=== PATIENT | female | born 1965 | race Two or more races ===

== ENCOUNTER 2020-01-27 16:33 | Emergency (ER) | payer SELFPAY ==
[~2020-01-27] VITALS: Ht 170.2 cm; Wt 111.1 kg
[2020-01-27 16:47] VITALS: BP 134/70
[2020-01-27 19:52] LABS: Basophils # (auto) 0 uL; Basophils % (auto) 0.2 % (0.0-2.0); Eosinophils # (auto) 0.1 uL; Hemoglobin 10.3 g/dL (12.2-16.2); Lymphocytes # (auto) 1.2 uL; Monocytes # (auto) 0.5 uL; Neutrophils % (auto) 76.8 % (37.0-80.0)
[2020-01-27 19:54] LABS: Eosinophils % (auto) 1.2 % (0.0-7.0); Hematocrit 33.1 % (36.0-46.0); Lymphocytes % (auto) 15.3 % (10.0-50.0); Mean Corpuscular Hemoglobin 24.9 pg (28.0-32.0); Mean Corpuscular Hgb Conc. 31.2 g/dL (32.0-36.0); Mean Corpuscular Volume 79.6 fL (80.0-100.0); Monocytes % (auto) 6.5 % (0.0-12.0); Neutrophils # (auto) 5.9 uL; Nucleated Red Blood Cells % 0.1 %; Platelet Count (auto) 256 10^3/uL (140-450); Red Blood Cells 4.15 10^6/uL (4.0-5.20); Red Cell Distribution Width 17.7 % (11.8-14.3); White Blood Cell 7.6 10^3/uL (4.4-10.8)
[2020-01-27 20:08] LABS: Albumin 3.7 g/dL (3.4-5.0); BUN/Creatinine Ratio 17.7; Calcium 8.6 mg/dL (8.5-10.1); Potassium 4.6 mmol/L (3.5-5.1)
[2020-01-27 20:11] LABS: Bilirubin, Total 0.4 mg/dL (0.2-1.0); Total Protein 8.8 g/dL (6.4-8.2)
[2020-01-27] MEDS ORDERED: SODIUM CHLORIDE 0.9% 1,000 ML IV ONE (21:00)
[2020-01-27] MEDS ORDERED: diphenhdrAMINE HCL 50 MG/1 ML VL IV ONE (21:00)
[2020-01-27] MEDS ORDERED: InsuLIN REG 1unit/0.01ml Soln (100units/ml) IV ONE (21:00)
== END 2020-01-27 20:57 | disposition left against medical advice (07) ==
LOC: ER 16:33
DX: E11.65 Type 2 diabetes mellitus with hyperglycemia (principal); R11.2 Nausea with vomiting, unspecified; R10.9 Unspecified abdominal pain
CPT/HCPCS: 36415; 80053; 85025

== ENCOUNTER 2021-04-28 19:15 | Inpatient (IN) | payer MEDICAID, OTHER ==
[~2021-04-28] VITALS: Ht 170.2 cm; Wt 96.3 kg
[2021-04-28 21:08] LABS: Basophils # (auto) 0 10 ^3/uL (0-0.2); Eosinophils # (auto) 0 10 ^3/uL (0-0.8); Hemoglobin 8.2 g/dL (12.2-16.2); Lymphocytes % (auto) 9.8 % (10.0-50.0); Monocytes # (auto) 0.9 10 ^3/uL (0-1.3); Neutrophils # (auto) 7.9 10 ^3/uL (1.6-8.6)
[2021-04-28 21:09] LABS: Basophils % (auto) 0.4 % (0.0-2.0); Eosinophils % (auto) 0.3 % (0.0-7.0); Hematocrit 26.9 % (36.0-46.0); Mean Corpuscular Hemoglobin 24.4 pg (28.0-32.0); Mean Corpuscular Hgb Conc. 30.3 g/dL (32.0-36.0); Mean Corpuscular Volume 80.2 fL (80.0-100.0); Monocytes % (auto) 9.5 % (0.0-12.0); Red Blood Cells 3.36 10^6/uL (4.0-5.20); Red Cell Distribution Width 19.2 % (11.8-14.3); White Blood Cell 9.8 10^3/uL (4.4-10.8)
[2021-04-28 21:16] LABS: INR 1.04 (0.9-1.15); Partial Thromboplastin Time 22.9 sec (23.0-31.2)
[2021-04-28 21:21] LABS: Calcium 8.3 mg/dL (8.5-10.1); Potassium 4.7 mmol/L (3.5-5.1)
[2021-04-28 21:24] LABS: Albumin 3.4 g/dL (3.4-5.0); BUN/Creatinine Ratio 13.5; Magnesium 2.1 mg/dL (1.6-2.6)
[2021-04-28 21:30] LABS: Bilirubin, Total 0.5 mg/dL (0.2-1.0); Total Protein 7.5 g/dL (6.4-8.2)
[2021-04-28] MEDS ORDERED: cefTRIAXone 1GM/50ML D5W 50 ML IV ONE (22:30)
[2021-04-28] MEDS ORDERED: ASPirin 325 MG TAB PO ONE (22:30)
[2021-04-28] MEDS ORDERED: AZITHROMYCIN 500MG/ 250ML 250 ML IV ONE (22:30)
[2021-04-29] MEDS: ENOXAPARIN SOD 120 MG/0.8 ML SYRINGE SC ONE ×2 (01:18→05:54)
[2021-04-29 01:36] LABS: Urine Bacteria MOD /hpf (None Seen); Urine Blood 2+ /uL (Negative); Urine Specific Gravity 1.018 (1.001-1.035); Urine WBC 256 /hpf (0 - 5)
[2021-04-29] MEDS ORDERED: ONDANSETRON HCL 4 MG/2 ML VIAL IV PRN (05:00)
[2021-04-29] MEDS ORDERED: DEXTROSE (50%) 50ML SYRG IV ONE (05:00)
[2021-04-29] MEDS: HEPARIN SODIUM (PORCINE) 5000 UNITS/ML 1ML VIAL SC SCH ×3 (06:56→22:37)
[2021-04-29] MEDS: SODIUM CHLORIDE 0.9% 1,000 ML IV SCH ×3 (06:56→22:32)
[2021-04-29] MEDS ORDERED: InsuLIN REG 1unit/0.01ml Soln (100units/ml) SC ONE (07:00)
[2021-04-29] MEDS ORDERED: ACCU-CHEK COMFORT CURVE STRIP VI ONE (07:00)
[2021-04-29 08:30] LABS: Basophils # (auto) 0 10 ^3/uL (0-0.2); Basophils % (auto) 0.1 % (0.0-2.0); Eosinophils # (auto) 0.1 10 ^3/uL (0-0.8); Eosinophils % (auto) 0.9 % (0.0-7.0); Lymphocytes # (auto) 0.9 10 ^3/uL (0.4-5.4); Mean Corpuscular Hemoglobin 24.9 pg (28.0-32.0); Mean Corpuscular Hgb Conc. 31.3 g/dL (32.0-36.0)
[2021-04-29 08:31] LABS: Hematocrit 25.6 % (36.0-46.0); Lymphocytes % (auto) 10.8 % (10.0-50.0); Mean Corpuscular Volume 79.4 fL (80.0-100.0); Monocytes # (auto) 0.9 10 ^3/uL (0-1.3); Monocytes % (auto) 10.7 % (0.0-12.0); Neutrophils # (auto) 6.5 10 ^3/uL (1.6-8.6); Neutrophils % (auto) 77.5 % (37.0-80.0); Nucleated Red Blood Cells % 0.1 %; Red Blood Cells 3.23 10^6/uL (4.0-5.20); Red Cell Distribution Width 19.3 % (11.8-14.3); White Blood Cell 8.4 10^3/uL (4.4-10.8)
[2021-04-29 09:59] LABS: Calcium 8.4 mg/dL (8.5-10.1); Potassium 4.5 mmol/L (3.5-5.1)
[2021-04-29 10:14] LABS: BUN/Creatinine Ratio 19.4; Bilirubin, Total 0.3 mg/dL (0.2-1.0); Total Protein 7.1 g/dL (6.4-8.2)
[2021-04-29] MEDS ORDERED: GABA-339 PO (12:21)
[2021-04-29] MEDS ORDERED: LISI-275 PO (12:21)
[2021-04-29] MEDS ORDERED: CITA-73 PO (12:21)
[2021-04-29] MEDS ORDERED: METF-370 PO (12:21)
[2021-04-29 13:00] VITALS: BP 140/74
[2021-04-29] MEDS ORDERED: ALBUTEROL SULF 2.5 MG/0.5ML(0.5%) NEB SOLN NEB PRN (13:15)
[2021-04-29 16:01] VITALS: BP 122/62
[2021-04-29 17:00] VITALS: BP 137/78
[2021-04-29 22:00] VITALS: BP 159/83
[2021-04-29] MEDS: cefTRIAXone 1GM/50ML D5W 50 ML IV SCH (22:32)
[2021-04-29] MEDS: AZITHROMYCIN 500MG/ 250ML 250 ML IV SCH (23:25)
[2021-04-29] MEDS: HYDROcodone-ACET 5/325MG TAB PO PRN (23:26)
[2021-04-30 05:00] VITALS: BP 150/72
[2021-04-30] MEDS: SODIUM CHLORIDE 0.9% 1,000 ML IV SCH ×3 (05:33→21:10)
[2021-04-30] MEDS: HYDROcodone-ACET 5/325MG TAB PO PRN ×3 (05:34→21:10)
[2021-04-30] MEDS: HEPARIN SODIUM (PORCINE) 5000 UNITS/ML 1ML VIAL SC SCH ×3 (05:39→22:14)
[2021-04-30 07:02] LABS: Basophils # (auto) 0 10 ^3/uL (0-0.2); Basophils % (auto) 0.1 % (0.0-2.0); Eosinophils # (auto) 0.1 10 ^3/uL (0-0.8); Hemoglobin 7.1 g/dL (12.2-16.2); Lymphocytes # (auto) 0.8 10 ^3/uL (0.4-5.4); Monocytes # (auto) 0.6 10 ^3/uL (0-1.3)
[2021-04-30 07:05] LABS: Eosinophils % (auto) 1.4 % (0.0-7.0); Hematocrit 22.1 % (36.0-46.0); Lymphocytes % (auto) 11.8 % (10.0-50.0); Mean Corpuscular Hgb Conc. 32.1 g/dL (32.0-36.0); Monocytes % (auto) 9.3 % (0.0-12.0); Neutrophils # (auto) 5.4 10 ^3/uL (1.6-8.6); Neutrophils % (auto) 77.4 % (37.0-80.0); Red Blood Cells 2.84 10^6/uL (4.0-5.20); Red Cell Distribution Width 19.4 % (11.8-14.3); White Blood Cell 6.9 10^3/uL (4.4-10.8)
[2021-04-30 07:22] LABS: BUN/Creatinine Ratio 30.9; Calcium 8.3 mg/dL (8.5-10.1); Potassium 4.3 mmol/L (3.5-5.1)
[2021-04-30 08:55] VITALS: BP 151/68
[2021-04-30 13:00] VITALS: BP 159/89
[2021-04-30 16:59] VITALS: BP 132/67
[2021-04-30 21:35] VITALS: BP 153/108
[2021-04-30] MEDS: cefTRIAXone 1GM/50ML D5W 50 ML IV SCH (22:20)
[2021-04-30] MEDS: AZITHROMYCIN 500MG/ 250ML 250 ML IV SCH (22:53)
[2021-05-01] VITALS (10 sets, daily range): BP systolic 127–173; BP diastolic 63–81
[2021-05-01] MEDS: HYDROcodone-ACET 5/325MG TAB PO PRN ×3 (03:41→16:06)
[2021-05-01] MEDS: SODIUM CHLORIDE 0.9% 1,000 ML IV SCH (04:54)
[2021-05-01] MEDS ORDERED: HEPARIN SODIUM (PORCINE) 5000 UNITS/ML 1ML VIAL ONE (05:39)
[2021-05-01] MEDS: HEPARIN SODIUM (PORCINE) 5000 UNITS/ML 1ML VIAL SC SCH ×2 (05:44→15:00)
[2021-05-01 05:59] LABS: Potassium 3.8 mmol/L (3.5-5.1)
[2021-05-01 06:08] LABS: BUN/Creatinine Ratio 19.8; Calcium 8.2 mg/dL (8.5-10.1)
[2021-05-01] MEDS ORDERED: SODIUM CHLORIDE 0.9% 1,000 ML IV SCH (09:45)
[2021-05-01] MEDS ORDERED: LEVO500T31 PO (09:54)
[2021-05-01] MEDS ORDERED: FERR-20 PO (09:54)
[2021-05-01] MEDS ORDERED: ACET1CAP14 PO (09:55)
[2021-05-01 10:05] LABS: Basophils # (auto) 0 10 ^3/uL (0-0.2); Eosinophils # (auto) 0.1 10 ^3/uL (0-0.8); Lymphocytes # (auto) 1.1 10 ^3/uL (0.4-5.4); Nucleated Red Blood Cells % 0.1 %
[2021-05-01 10:08] LABS: Basophils % (auto) 0.3 % (0.0-2.0); Eosinophils % (auto) 1.6 % (0.0-7.0); Hematocrit 21.8 % (36.0-46.0); Lymphocytes % (auto) 16.7 % (10.0-50.0); Mean Corpuscular Hemoglobin 25.4 pg (28.0-32.0); Mean Corpuscular Hgb Conc. 32.1 g/dL (32.0-36.0); Mean Corpuscular Volume 79.2 fL (80.0-100.0); Monocytes # (auto) 0.7 10 ^3/uL (0-1.3); Monocytes % (auto) 10.4 % (0.0-12.0); Neutrophils # (auto) 4.7 10 ^3/uL (1.6-8.6); Red Blood Cells 2.75 10^6/uL (4.0-5.20); Red Cell Distribution Width 19.4 % (11.8-14.3); White Blood Cell 6.6 10^3/uL (4.4-10.8)
[2021-05-01] MEDS ORDERED: SODIUM BICARBONATE 50ML VIAL 50 ML in SOD CHL 0.45% 1,000 ML IV SCH (10:15)
[2021-05-01 10:39] LABS: % Iron Saturation 5.2 % (15-50)
[2021-05-01] MEDS ORDERED: FUROSEMIDE 40 MG/4 ML VIAL IV ONE (17:00)
[2021-05-01] MEDS ORDERED: amLODIPine BESYLATE 5 MG TAB PO ONE (17:00)
== END 2021-05-01 18:56 | disposition home health service (06) | DRG 720 ==
LOC: ER 19:15 → EDBD 19:15 → TELE 04-29 05:28 → TELE-CENTR 04-29 11:40
PROVIDERS: ADMIT Hospitalist; ATTEND Hospitalist
PROC: 30233N1 Transfusion of Nonautologous Red Blood Cells into Peripheral Vein, Percutaneous Approach (ICD-10-PCS; principal; 2021-05-01)
DX: A41.9 Sepsis, unspecified organism (principal); J96.01 Acute respiratory failure with hypoxia; I21.A1 Myocardial infarction type 2; N17.0 Acute kidney failure with tubular necrosis; I13.0 Hypertensive heart and chronic kidney disease with heart failure and stage 1 through stage 4 chronic kidney disease, or unspecified chronic kidney disease; J18.9 Pneumonia, unspecified organism; I50.9 Heart failure, unspecified; E11.22 Type 2 diabetes mellitus with diabetic chronic kidney disease; N18.32 Chronic kidney disease, stage 3b; E87.2 Acidosis; I42.9 Cardiomyopathy, unspecified; M62.82 Rhabdomyolysis; N39.0 Urinary tract infection, site not specified; R80.9 Proteinuria, unspecified; F32.9 Major depressive disorder, single episode, unspecified; Z79.4 Long term (current) use of insulin; Z98.84 Bariatric surgery status; Z20.822 Contact with and (suspected) exposure to COVID-19; I25.10 Atherosclerotic heart disease of native coronary artery without angina pectoris; D50.9 Iron deficiency anemia, unspecified
CPT/HCPCS: 36415; 36600; 70450; 70551; 71045; 73700; 74176; 80048; 80053; 81001; 82550; 82805; 82962; 83036; 83540; 83550; 83605; 83735; 83880; 84443; 84484; 85025; 85379; 85610; 85730; 86850; 86900; 86901; 86920; 87040; 87086; 87088; 87186; 87426; 93005; 93306; 93970; 96365; 96366; 96367; 97163; G0378; J0696

== ENCOUNTER 2021-05-14 18:32 | Inpatient (IN) | payer MEDICAID ==
[~2021-05-14] VITALS: Ht 170.2 cm; Wt 92.0 kg
[~2021-05-14 18:32] MED LIST: ACET1CAP14 PO; CITA-73 PO; FERR-20 PO; LEVO500T31 PO
[2021-05-14] MEDS ORDERED: SODIUM CHLORIDE 0.9% 500 ML IV ONE (19:15)
[2021-05-14 20:01] LABS: Basophils # (auto) 0 10 ^3/uL (0-0.2); Basophils % (auto) 0.1 % (0.0-2.0); Eosinophils # (auto) 0 10 ^3/uL (0-0.8); Eosinophils % (auto) 0.5 % (0.0-7.0); Hematocrit 29.5 % (36.0-46.0); Hemoglobin 9.4 g/dL (12.2-16.2); Lymphocytes # (auto) 0.8 10 ^3/uL (0.4-5.4); Lymphocytes % (auto) 11.9 % (10.0-50.0); Mean Corpuscular Hemoglobin 27.3 pg (28.0-32.0); Mean Corpuscular Volume 85.4 fL (80.0-100.0); Monocytes # (auto) 0.3 10 ^3/uL (0-1.3); Monocytes % (auto) 5.1 % (0.0-12.0); Neutrophils # (auto) 5.5 10 ^3/uL (1.6-8.6); Neutrophils % (auto) 82.4 % (37.0-80.0); Nucleated Red Blood Cells % 0.1 %; Platelet Count (auto) 203 10^3/uL (140-450); Red Blood Cells 3.46 10^6/uL (4.0-5.20); White Blood Cell 6.7 10^3/uL (4.4-10.8)
[2021-05-14 20:03] LABS: Red Cell Distribution Width 23.9 % (11.8-14.3)
[2021-05-14 20:08] LABS: Alanine Aminotransferase 15 U/L (13-56); Anion Gap 9 (5-15); Aspartate Aminotransferase 14 U/L (15-37); BUN/Creatinine Ratio 13.8; Blood Alcohol < 3.0 mg/dL (0-5); Blood Urea Nitrogen 35 mg/dL (7-18); Calcium 8.3 mg/dL (8.5-10.1); Carbon Dioxide 17 mmol/L (21-32); Chloride 118 mmol/L (98-107); GFR African American 25 mL/min; GFR Non-African American 21 mL/min; Glucose 109 mg/dL (74-106); Sodium 144 mmol/L (136-145)
[2021-05-14 20:13] LABS: Alkaline Phosphatase 74 U/L (45-117); Bilirubin, Total 0.2 mg/dL (0.2-1.0); Total Protein 7.3 g/dL (6.4-8.2)
[2021-05-15 00:27] LABS: Urine Bacteria FEW /hpf (None Seen); Urine Blood Negative /uL (Negative); Urine Specific Gravity 1.016 (1.001-1.035); Urine WBC 15 /hpf (0 - 5)
[2021-05-15 00:40] LABS: Alcohol, Urine < 3.0 mg/dL (0-10); Amphetamine Screen, Urine NEGATIVE (NEGATIVE); Barbiturate Scree,Urine NEGATIVE (NEGATIVE); Benzodiazephine Screen, Urine NEGATIVE (NEGATIVE); Cannabinoid Screen, Urine NEGATIVE (NEGATIVE); Cocaine Screen, Urine NEGATIVE (NEGATIVE); Opiate Scree,Urine NEGATIVE (NEGATIVE); Phencyclidine Screen, Urine NEGATIVE (NEGATIVE)
[2021-05-15] MEDS ORDERED: ACETAMINOPHEN 325 MG TAB PO PRN (03:30)
[2021-05-15] MEDS ORDERED: DEXTROSE (50%) 50ML SYRG IV PRN ×2 (03:30→11:15)
[2021-05-15] MEDS ORDERED: SODIUM CHLORIDE 0.9% 1,000 ML IV SCH (03:30)
[2021-05-15] MEDS ORDERED: ONDANSETRON HCL 4 MG/2 ML VIAL IV PRN (03:30)
[2021-05-15] MEDS: cefTRIAXone 1GM/50ML D5W 50 ML IV SCH (04:02)
[2021-05-15] MEDS ORDERED: ACETAMINOPHEN 500 MG TAB PO ONE (04:45)
[2021-05-15] MEDS ORDERED: ACETAMINOPHEN 325 MG TAB PO ONE (05:00)
[2021-05-15] MEDS ORDERED: ACCU-CHEK COMFORT CURVE STRIP VI SCH (07:00)
[2021-05-15] MEDS ORDERED: InsuLIN REG 1unit/0.01ml Soln (100units/ml) SC SCH (07:00)
[2021-05-15] MEDS ORDERED: LISINOPRIL 5 MG TAB PO SCH (10:00)
[2021-05-15] MEDS ORDERED: TRAZ100T3 PO (10:02)
[2021-05-15] MEDS ORDERED: BACL10TA PO (10:02)
[2021-05-15] MEDS ORDERED: METF-370 PO ×2 (10:02→10:49)
[2021-05-15] MEDS ORDERED: GABA-339 PO (10:02)
[2021-05-15] MEDS ORDERED: FERRTAB (10:02)
[2021-05-15] MEDS ORDERED: IBUP800T26 PO (10:02)
[2021-05-15] MEDS ORDERED: TRAM50TA2 PO (10:02)
[2021-05-15] MEDS ORDERED: LISI-275 PO (10:02)
[2021-05-15] MEDS ORDERED: INSU1INJ19 SC (10:02)
[2021-05-15] MEDS: PANTOPRAZOLE 40 MG TAB PO SCH (10:16)
[2021-05-15] MEDS ORDERED: cloNIDine HCL 0.1 MG TAB PO PRN (11:15)
[2021-05-15] MEDS: InsuLIN REG 1unit/0.01ml Soln (100units/ml) SC SCH ×3 (11:30→21:28)
[2021-05-15] MEDS: ACCU-CHEK COMFORT CURVE STRIP VI SCH ×3 (12:00→21:12)
[2021-05-15] MEDS: SODIUM CHLORIDE 0.9% 1,000 ML IV SCH ×2 (13:00→21:11)
[2021-05-15] MEDS: FLUCONAZOLE 100 MG TAB PO SCH (14:00)
[2021-05-15] MEDS: HYDROcodone-ACET 5/325MG TAB PO PRN ×2 (14:01→22:12)
[2021-05-15 15:12] VITALS: BP 144/72
[2021-05-15 17:04] VITALS: BP 136/71
[2021-05-15] MEDS ORDERED: LORazepam 2MG/ML-1ML VIAL IV PRN (20:30)
[2021-05-15] MEDS: NYSTATIN TOPICAL POWDER 15GM TOP SCH (21:12)
[2021-05-15 22:00] VITALS: BP 133/68
[2021-05-15] MEDS ORDERED: TEMAZEPAM 15 MG CAP PO ONE (23:00)
[2021-05-16] MEDS: SODIUM CHLORIDE 0.9% 1,000 ML IV SCH (03:36)
[2021-05-16] MEDS: HYDROcodone-ACET 5/325MG TAB PO PRN ×3 (03:36→23:15)
[2021-05-16 05:00] VITALS: BP 157/72
[2021-05-16 05:31] LABS: Basophils # (auto) 0 10 ^3/uL (0-0.2); Basophils % (auto) 0.2 % (0.0-2.0); Eosinophils # (auto) 0 10 ^3/uL (0-0.8); Eosinophils % (auto) 0.7 % (0.0-7.0); Hematocrit 27.1 % (36.0-46.0); Hemoglobin 8.9 g/dL (12.2-16.2); Lymphocytes # (auto) 1.1 10 ^3/uL (0.4-5.4); Lymphocytes % (auto) 22.9 % (10.0-50.0); Mean Corpuscular Hemoglobin 27.8 pg (28.0-32.0); Mean Corpuscular Hgb Conc. 32.8 g/dL (32.0-36.0); Mean Corpuscular Volume 84.8 fL (80.0-100.0); Monocytes # (auto) 0.3 10 ^3/uL (0-1.3); Monocytes % (auto) 6.6 % (0.0-12.0); Neutrophils # (auto) 3.2 10 ^3/uL (1.6-8.6); Neutrophils % (auto) 69.6 % (37.0-80.0); Nucleated Red Blood Cells % 0.1 %; Platelet Count (auto) 166 10^3/uL (140-450); Red Blood Cells 3.19 10^6/uL (4.0-5.20); Red Cell Distribution Width 22.9 % (11.8-14.3); White Blood Cell 4.6 10^3/uL (4.4-10.8)
[2021-05-16 05:52] LABS: Potassium 4.3 mmol/L (3.5-5.1)
[2021-05-16 05:54] LABS: BUN/Creatinine Ratio 23.5
[2021-05-16 06:06] LABS: RPR Non Reactive (Non Reactive)
[2021-05-16] MEDS: ACCU-CHEK COMFORT CURVE STRIP VI SCH ×4 (06:08→22:18)
[2021-05-16] MEDS: InsuLIN REG 1unit/0.01ml Soln (100units/ml) SC SCH ×4 (06:08→22:00)
[2021-05-16 09:00] VITALS: BP 155/79
[2021-05-16] MEDS: FLUCONAZOLE 100 MG TAB PO SCH (10:07)
[2021-05-16] MEDS: PANTOPRAZOLE 40 MG TAB PO SCH (10:07)
[2021-05-16] MEDS: CITALOPRAM HYDROBR 20 MG TAB PO SCH (10:07)
[2021-05-16] MEDS: cefTRIAXone 1GM/50ML D5W 50 ML IV SCH (10:08)
[2021-05-16] MEDS: NYSTATIN TOPICAL POWDER 15GM TOP SCH ×2 (10:09→22:18)
[2021-05-16] MEDS: METOPROLOL SUCCINATE XL 50 MG TAB PO SCH (10:09)
[2021-05-16 13:30] VITALS: BP 145/77
[2021-05-16 22:00] VITALS: BP 154/73
[2021-05-16] MEDS ORDERED: TEMAZEPAM 15 MG CAP PO ONE (22:15)
[2021-05-17 05:00] VITALS: BP 172/83
[2021-05-17] MEDS: InsuLIN REG 1unit/0.01ml Soln (100units/ml) SC SCH ×3 (06:02→17:00)
[2021-05-17] MEDS: ACCU-CHEK COMFORT CURVE STRIP VI SCH ×3 (06:02→17:00)
[2021-05-17 09:09] VITALS: BP 150/86
[2021-05-17] MEDS: cefTRIAXone 1GM/50ML D5W 50 ML IV SCH (11:02)
[2021-05-17] MEDS: FLUCONAZOLE 100 MG TAB PO SCH (11:03)
[2021-05-17] MEDS: CITALOPRAM HYDROBR 20 MG TAB PO SCH (11:03)
[2021-05-17] MEDS: PANTOPRAZOLE 40 MG TAB PO SCH (11:03)
[2021-05-17] MEDS: METOPROLOL SUCCINATE XL 50 MG TAB PO SCH (11:04)
[2021-05-17] MEDS: NYSTATIN TOPICAL POWDER 15GM TOP SCH (11:04)
[2021-05-17 13:00] VITALS: BP 152/87
[2021-05-17 16:30] VITALS: BP 165/95
[2021-05-17] MEDS ORDERED: CIPR500T4 PO (18:01)
[2021-05-17] MEDS ORDERED: TEMAZEPAM 15 MG CAP PO PRN (22:00)
== END 2021-05-17 22:15 | disposition home health service (06) | DRG 463 ==
LOC: EDBD 18:32 → ER 18:34 → WEST WING 05-15 03:28
PROVIDERS: ADMIT Hospitalist; ATTEND Hospitalist
DX: N39.0 Urinary tract infection, site not specified (principal); N17.0 Acute kidney failure with tubular necrosis; G93.41 Metabolic encephalopathy; E44.0 Moderate protein-calorie malnutrition; E11.22 Type 2 diabetes mellitus with diabetic chronic kidney disease; N18.30 Chronic kidney disease, stage 3 unspecified; D64.9 Anemia, unspecified; E03.9 Hypothyroidism, unspecified; F17.210 Nicotine dependence, cigarettes, uncomplicated; Z79.4 Long term (current) use of insulin; Z82.0 Family history of epilepsy and other diseases of the nervous system; Z83.3 Family history of diabetes mellitus; Z90.710 Acquired absence of both cervix and uterus; Z98.84 Bariatric surgery status; F32.9 Major depressive disorder, single episode, unspecified; E66.9 Obesity, unspecified; Z68.30 Body mass index [BMI] 30.0-30.9, adult; Z20.822 Contact with and (suspected) exposure to COVID-19; Z91.041 Radiographic dye allergy status; Z90.49 Acquired absence of other specified parts of digestive tract; I10 Essential (primary) hypertension
CPT/HCPCS: 36415; 70450; 70551; 72125; 72131; 72148; 80048; 80053; 80307; 80320; 81001; 82140; 82550; 82607; 82962; 83605; 84439; 84443; 84484; 85025; 86592; 87081; 87426; 93005; 95819; 96361; 96365; G0378; J0696; J1815

== ENCOUNTER 2021-06-25 16:57 | Emergency (ER) | payer MEDICAID ==
[~2021-06-25] VITALS: Ht 172.7 cm; Wt 77.1 kg
[~2021-06-25 16:57] MED LIST changes: +CIPR500T4 PO; +GABA-339 PO; +IBUP800T26 PO; +INSU1INJ19 SC; -LEVO500T31 PO; +LISI-275 PO; +METF-370 PO; +TRAM50TA2 PO; +TRAZ100T3 PO
[2021-06-25] MEDS ORDERED: ETOMIDATE (2MG/ML) 20ML VIAL IV ONE ×2 (17:03→17:15)
[2021-06-25] MEDS ORDERED: SUCCINYLCHOLINE CHLORIDE 20 MG/ML 10ML VIAL IV ONE ×2 (17:04→17:15)
[2021-06-25] MEDS ORDERED: MIDAZOLAM DRIP 50 mg/50mL 50 ML IV ONE (17:05)
[2021-06-25 17:15] VITALS: BP 108/66
[2021-06-25] MEDS ORDERED: levoFLOXacin 500MG 100 ML IV ONE (17:15)
[2021-06-25] MEDS ORDERED: SODIUM CHLORIDE 0.9% 1,000 ML IVB ONE (17:15)
[2021-06-25] MEDS ORDERED: MIDAZOLAM DRIP 50 mg/50mL 50 ML IV SCH (17:15)
[2021-06-25] MEDS ORDERED: ACETAMINOPHEN 650 MG RECT SUPP PR ONE ×2 (17:16→17:45)
[2021-06-25] MEDS ORDERED: methylPREDNISolone SOD SUCC 125 MG/2 ML VL IV ONE (17:30)
[2021-06-25] MEDS ORDERED: NOREPINEPHRINE 8 MG/250ML KIT 250 ML IV SCH (17:45)
[2021-06-25 18:00] LABS: Basophils # (auto) 0 10 ^3/uL (0-0.2); Basophils % (auto) 0.1 % (0.0-2.0); Eosinophils # (auto) 0 10 ^3/uL (0-0.8); Hemoglobin 9.1 g/dL (12.2-16.2); Lymphocytes # (auto) 0.5 10 ^3/uL (0.4-5.4); Mean Corpuscular Hemoglobin 28.9 pg (28.0-32.0); Monocytes # (auto) 0.5 10 ^3/uL (0-1.3); Neutrophils # (auto) 8.1 10 ^3/uL (1.6-8.6); Nucleated Red Blood Cells % 0.1 %; White Blood Cell 9.1 10^3/uL (4.4-10.8)
[2021-06-25] MEDS ORDERED: ALBUTEROL SULF 2.5 MG/0.5ML(0.5%) NEB SOLN NEB ONE (18:00)
[2021-06-25] MEDS ORDERED: IPRATROPIUM BROM 0.5 MG/2.5ML INH SOL NEB ONE (18:00)
[2021-06-25 18:02] LABS: Hematocrit 29.4 % (36.0-46.0); Lymphocytes % (auto) 5.7 % (10.0-50.0); Mean Corpuscular Hgb Conc. 30.9 g/dL (32.0-36.0); Mean Corpuscular Volume 93.5 fL (80.0-100.0); Monocytes % (auto) 5.2 % (0.0-12.0); Red Blood Cells 3.14 10^6/uL (4.0-5.20); Red Cell Distribution Width 21.2 % (11.8-14.3)
[2021-06-25] MEDS ORDERED: NOREPINEPHRINE 8 MG/250ML KIT 250 ML IV ONE (18:07)
[2021-06-25 18:12] LABS: Amphetamine Screen, Urine NEGATIVE (NEGATIVE); Barbiturate Scree,Urine NEGATIVE (NEGATIVE); Benzodiazephine Screen, Urine NEGATIVE (NEGATIVE); Cannabinoid Screen, Urine NEGATIVE (NEGATIVE); Cocaine Screen, Urine NEGATIVE (NEGATIVE); Opiate Scree,Urine NEGATIVE (NEGATIVE); Phencyclidine Screen, Urine NEGATIVE (NEGATIVE)
[2021-06-25 18:22] LABS: Albumin 2.6 g/dL (3.4-5.0); Anion Gap 10 (5-15); Blood Alcohol < 3.0 mg/dL (0-5); Calcium 8.3 mg/dL (8.5-10.1); Chloride 131 mmol/L (98-107); Glucose 267 mg/dL (74-106); Sodium 149 mmol/L (136-145)
[2021-06-25 18:30] LABS: Alanine Aminotransferase 12 U/L (13-56); Alkaline Phosphatase 49 U/L (45-117); Aspartate Aminotransferase 10 U/L (15-37); BUN/Creatinine Ratio 23.1; Bilirubin, Total 0.3 mg/dL (0.2-1.0); GFR African American 7 mL/min; GFR Non-African American 6 mL/min; Total Protein 6.9 g/dL (6.4-8.2)
[2021-06-25 18:49] LABS: Carbon Dioxide 8 mmol/L (21-32); Potassium 7.1 mmol/L (3.5-5.1)
[2021-06-25 18:50] LABS: Blood Urea Nitrogen 183 mg/dL (7-18)
[2021-06-25 19:02] LABS: INR 1.7 (0.9-1.15); Partial Thromboplastin Time 26.1 sec (23.0-31.2)
[2021-06-25 19:03] LABS: Urine Bacteria FEW /hpf (None Seen); Urine Blood TRACE /uL (Negative); Urine Specific Gravity 1.018 (1.001-1.035); Urine WBC 18 /hpf (0 - 5)
[2021-06-25 19:05] VITALS: BP 99/53
[2021-06-25] MEDS ORDERED: CALCIUM GLUC 1,000mg/50ml-NS 50 ML IV ONE (19:15)
[2021-06-25] MEDS ORDERED: SODIUM CHLORIDE 0.9% 1,000 ML IV ONE (19:15)
[2021-06-25] MEDS ORDERED: InsuLIN REG 1unit/0.01ml Soln (100units/ml) IV ONE (19:15)
[2021-06-25] MEDS ORDERED: SODIUM BICARBONATE 8.4 % INJ 50ML VIAL IV ONE ×2 (19:15)
[2021-06-25] MEDS ORDERED: SODIUM BICARBONATE 8.4% INJ 50ML SYRINGE ONE (19:30)
[2021-06-25] MEDS ORDERED: PROPOFOL 100 ML IV SCH (19:30)
[2021-06-25 20:22] VITALS: BP 99/53
[2021-06-25 20:28] VITALS: BP 102/58
[2021-06-26] MEDS ORDERED: ALBUTEROL SULF 2.5 MG/0.5ML(0.5%) NEB SOLN NEB SCH
[2021-06-26] MEDS ORDERED: IPRATROPIUM BROM 0.5 MG/2.5ML INH SOL NEB SCH
== END 2021-06-25 21:00 | disposition hospice, inpatient (51) ==
LOC: EDUNIT# 16:57 → EDBD 16:57 → ER 16:57
DX: R41.82 Altered mental status, unspecified (principal); I60.9 Nontraumatic subarachnoid hemorrhage, unspecified; N17.9 Acute kidney failure, unspecified; E87.5 Hyperkalemia; E87.2 Acidosis; R77.8 Other specified abnormalities of plasma proteins; E11.65 Type 2 diabetes mellitus with hyperglycemia; I95.9 Hypotension, unspecified; Z20.822 Contact with and (suspected) exposure to COVID-19
CPT/HCPCS: 31500; 36415; 36556; 36600; 70450; 71045; 80053; 80307; 80320; 81001; 82805; 82962; 83605; 84484; 85025; 85379; 85610; 85730; 87040; 87070; 87077; 87186; 87205; 87426; 94640; 96361; 96365; 96375; 99291; J0330; J0610; J1815; J1956; J2250; J2704; J2930; J7644; 94002